=== PATIENT | male | born 1980 | race Hispanic/Latino ===

== ENCOUNTER 2024-12-01 14:01 | Emergency (ER) | payer SELFPAY ==
[~2024-12-01] VITALS: Ht 162.6 cm; Wt 59.0 kg
[2024-12-01 15:12] VITALS: BP 118/68; PULSE 64; RESP 16; TEMP 98.3
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
--- NOTE | 2024-12-01 15:36 | HMCIMG ---
EXAM: CR Cervical spine, 4 View. CLINICAL HISTORY: pain COMPARISON: None provided. FINDINGS: BONES: No acute fracture or aggressive appearing osseous lesion. DISCS/DEGENERATIVE CHANGES: Mild degenerative changes in the lower cervical spine. SOFT TISSUES: No prevertebral soft tissue swelling. The visualized lung apices are clear. IMPRESSION: No fracture or dislocation in the cervical spine. Mild degenerative changes in the lower cervical spine /[place]
--- NOTE | 2024-12-01 15:37 | HMCIMG ---
EXAM: CR Lumbar Spine, 1 View. CLINICAL HISTORY: pain COMPARISON: None provided. FINDINGS: BONES: No acute fracture or aggressive appearing osseous lesion. ALIGNMENT: No dislocation. There is straightening of the lumbar spine. DISCS / DEGENERATIVE CHANGES: The disc spaces are preserved. SOFT TISSUES: The soft tissues are unremarkable. IMPRESSION: No fracture or dislocation in the lumbar spine. Straightening of the lumbar spine which may be due to paraspinal muscle spasm. /[place]
--- NOTE | 2024-12-01 15:40 | HMCIMG ---
EXAM: CR left Shoulder, 2 View. CLINICAL HISTORY: pain COMPARISON: None provided. FINDINGS: BONES: No acute fracture or aggressive appearing osseous lesion. JOINTS: No dislocation. The joint spaces are normal. SOFT TISSUES: The soft tissues are unremarkable. IMPRESSION: No acute abnormality evident on examination of the left shoulder. No acute fracture or dislocation. /[place]
== END 2024-12-01 15:16 | disposition home or self-care (01) ==
LOC: EEVIPCON 14:01 → EDH 14:01
DX: S43.402A Unspecified sprain of left shoulder joint, initial encounter (principal); S13.4XXA Sprain of ligaments of cervical spine, initial encounter; S33.9XXA Sprain of unspecified parts of lumbar spine and pelvis, initial encounter; X58.XXXA Exposure to other specified factors, initial encounter; Y93.89 Activity, other specified; Y92.89 Other specified places as the place of occurrence of the external cause; Y99.8 Other external cause status
CPT/HCPCS: 72040; 72100; 73030; 99284

== ENCOUNTER 2025-01-14 22:05 | Emergency (ER) | payer OTHER ==
[~2025-01-14] VITALS: Ht 162.6 cm; Wt 79.4 kg
--- NOTE | 2025-01-14 23:53 | HMCIMG ---
EXAM: CT Maxillofacial Without IV contrast. CLINICAL HISTORY: Jaw pain. TECHNIQUE: Axial computed tomography images of the face without intravenous contrast. Sagittal and coronal reformatted images were generated. CONTRAST: None. COMPARISON: None provided. FINDINGS: FACIAL BONES/ORBITS: Acute comminuted, displaced fractures of the left zygomatic arch. Minimally displaced acute fracture of the left nasal process of the maxilla. Nondisplaced acute fracture of the nasal bone. The mandible is intact. The orbits are normal. No retrobulbar hematoma or mass. Mild mucosal thickening in the left maxillary sinus. Mild deviated nasal septum with a septal spur towards the left. SOFT TISSUES: The soft tissues are unremarkable. No radiopaque foreign body or focal fluid collection seen. IMPRESSION: Acute comminuted, displaced fractures of the left zygomatic arch. Minimally displaced acute fracture of the left nasal process of the maxilla. Nondisplaced acute fracture of the nasal bone. /[place]
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
--- NOTE | 2025-01-15 00:18 | NUR ---
PATIENT'S ESCORT REPORTS NEW ONSET SLURRED SPEECH. LEFT SIDED FACIAL DROOP NOTED. NIH ASSESSMENT PERFORMED. NIH 2, GCS 15 AT THIS TIME.
--- NOTE | 2025-01-15 00:20 | NUR ---
Code Stroke called
--- NOTE | 2025-01-15 00:22 | NUR ---
taken to ct scan
--- NOTE | 2025-01-15 00:30 | NUR ---
back from ct scan
[2025-01-15 00:36] LABS: CREATININE 0.8 mg/dL (0.5-1.3); GLOMERULAR FILTR. RATE CALC 113.0 mL/min (>90); GLUCOSE,RANDOM 102.0 mg/dL (70-105); SODIUM SERUM 139.0 mmol/L (136-145); UREA NITROGEN, BLOOD 15.0 mg/dL (7-18)
[2025-01-15 00:38] LABS: IMMATURE GRANULOCYTE ABSOLUTE 0.04 K/uL (0-1); NUCLEATED RED BLOOD CELLS 0.0 % (0.0-0.19); PLATELET COUNT (AUTO) 242 K/uL (130-400); RED BLOOD CELL COUNT(AUTO) 5.51 MIL/uL (4.50-6.20); RED CELL DISTRIBUTION WIDTH 12.0 % (11.0-15.5); WHITE BLOOD COUNT (AUTO) 8.6 K/uL (4.8-10.8)
--- NOTE | 2025-01-15 00:42 | HMCIMG ---
EXAM: Non-contrast CT examination of the Brain CLINICAL HISTORY: Stroke protocol. Headache. Trauma. TECHNIQUE: Thin collimated axial CT images of the brain were obtained, with sagittal and coronal reformatted images also submitted. A CT scan is done according to ALARA (As Low as Reasonably Achievable). CONTRAST USED: None. COMPARISON: None provided. FINDINGS: No acute intracranial abnormality is present. No acute cortical infarction, hemorrhage, mass, or mass effect. No hydrocephalus or abnormal extra-axial fluid collections. The posterior fossa is unremarkable. Comminuted depressed acute fracture in the left zygomatic arch. The included portions of the paranasal sinuses and mastoid air cells are clear. IMPRESSION: No acute intracranial abnormality is present. Comminuted depressed acute fracture in the left zygomatic arch. /[place]
[2025-01-15 00:52] LABS: INR 1.03 (0.85-1.15)
--- NOTE | 2025-01-15 01:26 | NUR ---
TRANSFER CALL PLACED TO [facility] TO INITIATE TRANSFER FOR TRAUMA MAXILLOFACIAL SERVICES. STATES THEY WILL BE AUTO-ACCEPTING HIM AND WILL CALL BACK WITH MOT INFORMATION.
--- NOTE | 2025-01-15 01:37 | NUR ---
assume care of patient at this time
--- NOTE | 2025-01-15 01:42 | NUR ---
TRANSFER PT. WAS ACCEPTED @ 0137 BY WHIT GARCIA MD (TRAUMA) FOR TRANSFER TO [facility] ER. REPORT: [id number]
--- NOTE | 2025-01-15 01:51 | NUR ---
[facility] CALLED FOR TRANSPORT
--- NOTE | 2025-01-15 01:56 | NUR ---
[facility] CONTACTED [facility] TO INFORM THEM THAT THIS IS A TRAUMA TRANSFER
[2025-01-15 02:19] VITALS: BP 111/71; PULSE 70; RESP 16; TEMP 98.6; O2SAT 99
--- NOTE | 2025-01-15 02:34 | NUR ---
report given to Johanny PINA at [facility]
== END 2025-01-15 02:35 | disposition short-term general hospital (02) ==
LOC: EEVIPCON 22:05 → EDH 22:05
DX: S02.40FA Zygomatic fracture, left side, initial encounter for closed fracture (principal); Y08.89XA Assault by other specified means, initial encounter; Y93.89 Activity, other specified; Y92.89 Other specified places as the place of occurrence of the external cause; Y99.8 Other external cause status
CPT/HCPCS: 36415; 70450; 70486; 80048; 85025; 85610; 99284